=== PATIENT | male | born 1990 | race Caucasian/White ===

== ENCOUNTER 2025-08-28 09:29 | Outpatient (CLI) | payer OTHER, SELFPAY ==
--- OUTSIDE RECORDS SUMMARY | 2025-08-28 09:34 | XMS_ITS | Clinical Summary ---
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 Name Role Phone Unavailable Primary Care Provider Unavailabl e Source Comments [facility] is fully rolled out with thefollowing exceptions:General Clinical Research [facility] Social History Tobacco Use Types Packs/Day Years Used Date Smoking Tobacco: Never Assessed Sex and Gender Information Value Date Recorded Sex Assigned at Not on file Legal Sex Male 5:19 AM EST Gender Identity Not on file Sexual Orientation Not on file Plan of Treatment Health Maintenance Due Date Last Done Comments MMR IMMUNIZATION (1 of 1 - S tandard series) 1989 DTAP/Tdap/Td IMMUNIZATION (1 - Tdap) 1995 Yearly Physical Ages 3-18+ 1999 VARICELLA IMMUNIZATION (1 of 2 - 13+ 2-dose series) 2001 HEPATITIS B IMMUNIZATION (1 of 3 - 19+ 3-dose series) 2007 AMB SEASONAL FLU VACCINE (#1) 05/07/2025 COVID-19 Vaccine (2024-2 6 season) 2025 HIB IMMUNIZATION Aged Out No longer e ligible based on patient's age to complete this topic HPV IMMUNIZATION (No Doses Required) Completed IPV IMMUNIZATION Aged Out No longer e ligible based on patient's age to complete this topic MCV4 IMMUNIZATION Aged Out No longer eligible based on patient's age to complete this topic MENINGOCOCCAL B VACCINE Aged Out No l onger eligible based on patient's age to complete this topic PNEUMOCOCCAL IMMUNIZATION Aged Out No longer eligible based on patient's age to complete this topic Respiratory Syncytial Virus (RSV) <20mo Aged Out No longer eligible b ased on patient's age to complete this topic
--- NOTE | 2025-08-28 09:39 | XR_ITS ---
FINAL REPORT TECHNIQUE: Right shoulder 3 views CLINICAL HISTORY: PAIN IN RIGHT JOINT OF SHOULDER COMPARISON: None FINDINGS: 3 views show no evidence of acute displaced fracture or dislocation of the visualized bony architecture. There is mild acromioclavicular arthropathy present. IMPRESSION: Mild acromioclavicular arthropathy, without acute osseous abnormality. Reviewed, Interpreted and Dictated by Dayana Wu MD Transcribed by Lela Friedman Authenticated and [facility]
== END 2025-08-28 23:59 ==
PROVIDERS: PCP Nurse Practitioner Family; Visit Provider Nurse Practitioner Family
DX: M19.011 Primary osteoarthritis, right shoulder
CPT/HCPCS: 73030